=== PATIENT | female | born 1995 | race Two or more races ===

== ENCOUNTER 2025-03-05 17:25 | Inpatient (IN) | payer MEDICAID ==
[~2025-03-05] VITALS: Ht 165.1 cm; Wt 95.0 kg
--- NOTE | 2025-03-05 17:38 | ECG ---
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
--- NOTE | 2025-03-05 17:53 | ED.PDOC ---
History of Present Illness HPI Comments 29-year-old female with no significant past medical history brought in by family for evaluation of a syncopal episode about 30 minutes prior to arrival. Patient states she was in her usual state of health, had showered, then sat down on the bed, began to feel lightheaded, and asked family to bring her the blood pressure cuff to check her blood pressure. She then had a syncopal episode while seated. Unclear how long patient was unconscious, as she states no one witnessed the episode. She denies any preceding pain or shortness of breath. She denies any recent illness, vomiting or diarrhea. She states she did not eat today. She denies any bleeding or black stools, family history of VTE. Chief Complaint: Syncope Time Seen by MD: 17:29 Primary Care Provider: HEIDY Reviewed Notes: Nurses Notes Allergies: Coded Allergies: NO KNOWN ALLERGIES (Unverified , 09/30/14) Home Meds No Active Prescriptions or Reported Meds Information Source: Patient, Relative Mode of Arrival: Ambulatory Past Medical History Past Medical History (Other): One previous unprovoked syncopal episode in January of 2025 Surgical History: Denies all surgeries REHABILITATION CONSULTANT History: No Pertinent REHABILITATION CONSULTANT History Family History Family History: Reviewed,noncontributory to illness, Unknown Social History Smoker: Non-Smoker Alcohol: Denies ETOH Use Drugs: Denies Drug Use Lives In: Home All Other Systems: Reviewed and Negative (Comprehensive systems review obtained and negative except for what is stated in the HPI.) Physical Exam General Appearance: Mild Distress, Obese HEENT: Pale Conjuntivae (L), Pale Conjuntivae (R), PERRL/EOMI, Other (Pupils and face symmetric. Moist mucous membranes.) Neck: Full Range of Motion, Non-Tender, Normal Inspection, Supple Respiratory: Lungs Clear, No Accessory Muscle Use, No Respiratory Distress, Normal Breath Sounds Cardiovascular: No Edema, No JVD, Regular Rate/Rhythm Breast Exam: Deferred Gastrointestinal: Non Tender, Soft Genitalia: Deferred Pelvic: Deferred Rectal: Deferred Extremities: Normal inspection, Normal range of motion, Non-tender, No pedal edema Neurologic: Alert (Oriented x4), Normal Affect, Normal Mood, Other (Intermittently somnolent. Moves all extremities. No gross focal deficit.) Cerebellar Function: NOT DONE Reflexes: NOT DONE Skin: Dry, Pallor, Warm Lymphatic: NOT DONE Was a procedure done? Was a procedure done?: No EKG EKG #1: Comments Sinus rhythm, rate 98, normal NV and QRS intervals, QTC 476, normal axis, normal QRS, nonspecific T change. EKG #2: Comments Sinus tach, rate 114, normal NV and QRS intervals, QTC prolonged at 502, normal axis, normal QRS, nonspecific T change. Differential Dx Considerations may include: Vasovagal syncope, orthostasis, hypovolemia, anemia, arrhythmia, KS, PE, CVA, TIA, mass lesion, among others X-Ray, Labs, Meds, VS Vital Signs Date Time Temp Pulse Resp B/P (MAP) Pulse Ox O2 Delivery O2 Flow Rate FiO2 03/05/25 21:02 98.0 81 23 104/60 (75) 96 98.0 03/05/25 19:47 88 26 96 Room Air* 0 21 03/05/25 19:45 98.0 88 26 120/73 (89) 96 98.0 03/05/25 17:59 90 21 96 Room Air* 0 21 03/05/25 17:54 98.0 90 21 103/55 (71) 96 98.0 03/05/25 17:36 98 03/05/25 17:35 98.0 101 16 109/62 (78) 96 98.0 Lab Test 03/05/25 18:43 03/05/25 17:49 03/05/25 17:38 03/05/25 17:31 Range/Units Troponin I High Sensitivity < 3 L < 3 L </=34 ng/L White Blood Count 3.9 L 4.4-10.8 10^3/uL Red Blood Count 2.39 L 4.0-5.20 10^6/uL Hemoglobin 7.7 L 12.2-16.2 g/dL Hematocrit 21.4 L 36.0-46.0 % Mean Corpuscular Volume 89.4 80.0-100.0 fL Mean Corpuscular Hemoglobin 32.1 H 28.0-32.0 pg Mean Corpuscular Hemoglobin Concent 35.9 32.0-36.0 g/dL Red Cell Distribution Width 12.9 11.8-14.3 % Platelet Count 209 140-450 10^3/uL Mean Platelet Volume 7.5 6.9-10.8 fL Neutrophils (%) (Auto) 37.0-80.0 % Lymphocytes (%) (Auto) 10.0-50.0 % Monocytes (%) (Auto) 0.0-12.0 % Basophils (%) (Auto) 0.0-2.0 % Neutrophils # (Auto) 1.6-8.6 10 ^3/uL Lymphocytes # (Auto) 0.4-5.4 10 ^3/uL Monocytes # (Auto) 0-1.3 10 ^3/uL Differential Total Cells Counted 100.0 100 Neutrophils % (Manual) 38 37.0-80.0 Band Neutrophils % (Manual) 0 Lymphocytes % (Manual) 61 H 10.0-50.0 Monocytes % (Manual) 1 0-12 Eosinophils % (Manual) 0 0-7 Basophils % (Manual) 0 0.0-2.0 Metamyelocytes % (manual) 0 Myelocytes % (Manual) 0 Promyelocytes % (Manual) 0 Blast Cells % (Manual) 0 Reactive Lymphocytes 0 Platelet Estimate Adequate Prothrombin Time 10.4 9.3-11.8 sec Prothrombin Time INR 0.98 0.9-1.15 Activated Partial Thromboplast Time 23.4 L 24.5-34.5 SEC D-Dimer, Quantitative 1.08 H 0.0-0.49 mg/L FEU Sodium Level 142 136-145 mmol/L Potassium Level 3.8 3.5-5.1 mmol/L Chloride Level 109 H 98-107 mmol/L Carbon Dioxide Level 23 20-31 mmol/L Anion Gap 10 5-15 Blood Urea Nitrogen 18 9-23 mg/dL Creatinine 0.83 0.550-1.02 mg/dL Glomerular Filtration Rate Calc 98 >90 mL/min BUN/Creatinine Ratio 21.7 H 10.0-20.0 Serum Glucose 105 74-106 mg/dL Calcium Level 9.8 8.7-10.4 mg/dL Total Bilirubin 0.5 0.2-1.0 mg/dL Aspartate Amino Transferase (AST) 62 H 13-40 U/L Alanine Aminotransferase (ALT) 158 H 7-40 U/L Alkaline Phosphatase 68 46-116 U/L B-Type Natriuretic Peptide 3.04 0-100 pg/mL Total Protein 7.5 5.7-8.2 g/dL Albumin 4.5 3.2-4.8 g/dL Urine Color Colorless Yellow Urine Clarity Clear Clear Urine pH 5.5 5.0-9.0 Urine Specific [place] 1.010 1.001-1.035 Urine Protein Negative Negative Urine Ketones 1+ H Negative Urine Blood Negative Negative /uL Urine Nitrite Negative Negative Urine Bilirubin Negative Negative Urine Urobilinogen Normal Negative mg/dL Urine Leukocyte Esterase 1+ Negative /uL Urine RBC 2 0 - 4 /hpf Urine Microscopic WBC 3 0-5 /HPF Urine Squamous Epithelial Cells Few <5 /hpf Urine Bacteria Few H None Seen /hpf Urine Mucus Few None Seen Urine Glucose Normal Normal mg/dL Urine Test Negative Negative POC Glucose 93 70-106 mg/dl Current Medications Medications (Trade) Dose Ordered Sig/Samuel Route Start Time Stop Time Status Last Admin Sodium Chloride 2,000 ml @ 1,000 mls/hr Q2H ONCE IV 03/05/25 17:45 03/05/25 19:44 DC 03/05/25 17:54 Ondansetron HCl (Zofran) 4 mg Q4HP PRN IV 03/05/25 21:15 03/05/25 22:51 Ceftriaxone Sodium 50 ml @ 100 mls/hr ONCE ONCE IV 03/05/25 21:30 03/05/25 21:59 DC 03/05/25 21:49 PROCEDURE(s): CTACH - CT ANGIO CHEST CONTRAST REASON: syncope hi dimer ORDER NUMBER(s): [id number], ACCESSION NUMBER(s): [id number] Procedure: CT CT ANGIO CHEST CONTRAST Reason for study/Clinical History: syncope hi dimer Comparison Study: None Exam Date: 03/05/2025 09:55 PM Radiation Dose Information: CT Dose: CTDI volume is 26.18 mGy. Dose-length product is 936.47 mGy*cm Contrast: Type of contrast: Omni 350 Contrast inject: 100 mL Contrast wasted:0 TECHNIQUE: After the uneventful administration of intravenous contrast intravenously, CT imaging was performed through the chest. Coronal and sagittal reformations were performed by the technologist. FINDINGS: Lower Neck: Visualized portions of the thyroid gland are unremarkable. Aorta and Vasculature: Normal caliber of thoracic aorta. Several filling defects in the 3rd and 4th order branches of the right lower lobe pulmonary artery. Series 2 images 87- 93 Lymph Nodes: No enlarged intrathoracic lymph nodes. Mediastinum: Heart size is normal. There is no pericardial effusion. The esophagus is unremarkable. Lungs: No focal consolidation, pleural effusion or significant pneumothorax. No suspicious pulmonary nodule or mass. Musculoskeletal: No acute osseous abnormality. Upper abdomen: Limited portions of the upper abdomen are unremarkable. IMPRESSION: 1. Positive pulmonary emboli in the 3rd and 4th order branches of the right lower lobe pulmonary artery. (Series 2 images 87- 93) 2. CRITICAL FINDINGS 3. Critical Result: POSITIVE PULMONARY EMBOLI 3RD AND 4TH ORDER BRANCHES RIGHT LOWER LOBE PULMONARY ARTERY. 4. Findings discussed with Dr Khanna , at 03/05/2025 10:41 PM, and acknowledged receipt and understanding of the findings. 5. .. All CT scans at this medical facility are performed using dose modulation techniques as appropriate to a performed exam including the following: Automated exposure control was utilized; adjustment of the MA and/or KV according to patient size; and use of iterative reconstruction technique. X-Ray, Labs, Meds, VS Comment 29-year-old female with no significant past medical history presenting after a syncopal episode Vitals remarkable for initial heart rate of 101 Exam remarkable for pallor, somnolence Rhythm strip independently interpreted by me: Sinus rhythm, rate 98, no ectopy. CT angio chest IMPRESSION: 1. Positive pulmonary emboli in the 3rd and 4th order branches of the right lower lobe pulmonary artery. (Series 2 images 87- 93) CBC remarkable for WBC 3.9, hemoglobin 7.7, hematocrit 21.4, CMP unremarkable, BNP and troponin negative, D-dimer 1.01, coag panel PTT 23.4, UA and urine test pending Patient treated with the following in the ED: 2 L 0.9 normal saline IV bolus On re-evaluation, patient is more alert and no longer tachycardic. Other vitals were stable Patient states she has not had her menstrual period for several months, and reports no bleeding or dark stools. Syncope is possibly due to anemia. Plan is to admit the patient for heme/onc evaluation and hemoglobin trend. Patient was admitted prior to CT angio chest results. When I was notified of results, I started the patient on the heparin protocol. Patient at the same time developed chest pain, so morphine was administered which relieved the chest pain. EKG repeated after onset of chest pain showed a sinus tach, rate 114. Time of 1ST Reevaluation: 18:46 Reevaluation 1ST: Improved Patient Education/Counseling: Diagnosis, Treatment, Need For Follow Up Family Education/Counseling: Diagnosis, Treatment, Need For Follow Up Departure 1 Departure Time of Disposition: 20:00 Impression: Primary Impression: Syncope Qualified Codes: R55 - Syncope and collapse Additional Impressions: Symptomatic anemia Leukopenia Qualified Codes: D72.819 - Decreased white blood cell count, unspecified Coagulopathy Pulmonary emboli Qualified Codes: I26.99 - Other pulmonary embolism without acute cor pulmonale Disposition: ADMITTED INPATIENT Admit to: [facility] Condition: Guarded e-Prescriptions No Active Prescriptions or Reported Meds Critical Care Note Critical Care Time?: Yes (45 min-critical care time only) Critical care comment: Critical care time including multiple bedside re-evaluations, review of lab and imaging studies, and discussion of the case with the admitting provider. Patient is high risk for hemodynamic and/or neurologic decompensation. Stability Stability form required: No Heart Score Heart Score: Heart Score Response (Comments) Value History N/A 0 EKG N/A 0 Age N/A 0 Risk Factors N/A 0 Troponin N/A 0 Total 0 MAXIMO HAN MD March 05, 2025 17:53
[2025-03-05] MEDS: SODIUM CHLORIDE 0.9% 2,000 ML IV ONE (17:54)
[2025-03-05 17:59] VITALS: PULSE 90; RESP 21; O2SAT 96
[2025-03-05 18:18] LABS: Alanine Aminotransferase 158 U/L (7-40); Albumin 4.5 g/dL (3.2-4.8); Alkaline Phosphatase 68 U/L (46-116); Anion Gap 10 (5-15); Aspartate Aminotransferase 62 U/L (13-40); BUN/Creatinine Ratio 21.7 (10.0-20.0); Bilirubin, Total 0.5 mg/dL (0.2-1.0); Blood Urea Nitrogen 18 mg/dL (9-23); Calcium 9.8 mg/dL (8.7-10.4); Carbon Dioxide 23 mmol/L (20-31); Chloride 109 mmol/L (98-107); Glucose 105 mg/dL (74-106); INR 0.98 (0.9-1.15); Partial Thromboplastin Time 23.4 SEC (24.5-34.5); Potassium 3.8 mmol/L (3.5-5.1); Prothrombin Time 10.4 sec (9.3-11.8); Sodium 142 mmol/L (136-145); Total Protein 7.5 g/dL (5.7-8.2)
[2025-03-05 18:26] LABS: Hematocrit 21.4 % (36.0-46.0); Hemoglobin 7.7 g/dL (12.2-16.2); Mean Corpuscular Volume 89.4 fL (80.0-100.0); White Blood Cell 3.9 10^3/uL (4.4-10.8)
[2025-03-05 18:28] LABS: Mean Corpuscular Hemoglobin 32.1 pg (28.0-32.0); Mean Corpuscular Hgb Conc. 35.9 g/dL (32.0-36.0); Platelet Count (auto) 209 10^3/uL (140-450); Red Blood Cells 2.39 10^6/uL (4.0-5.20); Red Cell Distribution Width 12.9 % (11.8-14.3)
[2025-03-05 18:29] LABS: Band Neutrophils % (manual) 0; Basophils % (manual) 0 (0.0-2.0); Blast Cells 0; Eosinophils % (manual) 0 (0-7); Metamyelocytes % 0; Myelocytes % 0; Promyelocytes % 0; Reactive Lymphocytes 0
[2025-03-05 18:50] LABS: Lymphocytes % (manual) 61 (10.0-50.0); Monocytes % (manual) 1 (0-12); Platelet Estimate Adequate
[2025-03-05 19:47] VITALS: PULSE 88; RESP 26; O2SAT 96
[2025-03-05 20:55] LABS: Urine Bacteria FEW /hpf (None Seen); Urine Blood Negative /uL (Negative); Urine Clarity Clear (Clear); Urine Color Colorless (Yellow); Urine Mucus FEW (None Seen); Urine Protein, UAD Negative (Negative); Urine Squamous Epithelial Cell FEW /hpf (<5); Urine Urobilinogen Normal (Negative); Urine WBC 3 /HPF (0-5); Urine pH 5.5 (5.0-9.0)
[2025-03-05] MEDS ORDERED: ACETAMINOPHEN 325 MG TAB PO PRN (21:15)
[2025-03-05] MEDS ORDERED: DOCUSATE SOD 100 MG CAP PO PRN (21:15)
[2025-03-05] MEDS ORDERED: HYDROcodone-ACET 5/325MG TAB PO PRN (21:15)
[2025-03-05] MEDS: IOHEXOL 350 MG/ML 100ML IJ ONE (21:23)
--- NOTE | 2025-03-05 21:42 | DVHHP2 ---
History of Present Illness Reason for Visit: Syncope and collapse History of Present Illness The patient is a 29-year-old female with past medical history of syncope who presented to [facility] ED for evaluation of syncopal episode. Patient reports she feeling lightheaded after shower, then sat down on the bed trying to check her blood pressure when she had a syncopal episode. Unclear how long patient was unconscious, as she states no one witnessed the episode. Patient was seen and evaluated in the ED, laboratory data shows WBC 3.9, hemoglobin 7.7, hematocrit 21.4, platelets 209, sodium 142, potassium 3.8, BUN 18, creatinine 0.83, glucose 105, AST 62, ALT 158, BNP 3.04, D-dimer 1.08, troponin < 3, urinalysis positive for urinary tract infection, blood pressure 104/60, heart rate 82, temperature 98.0 F, O2 saturation 96% on room air. CT Angiography revealing positive pulmonary emboli in the 3rd and 4th order branches of the right lower lobe pulmonary artery. Patient was started on IV antibiotic regimen Rocephin, heparin drip, please see medication orders section in the computer. On my assessment, patient denies chest pain, no headache, no dizziness, no blurry vision, no shortness of breath, no nausea, no vomiting, no fever, no chills. Patient was admitted for further evaluation and medical management. Past Medical History Syncope Past Surgical History Denies all surgeries Family History Reviewed, noncontributory to the management of this case. Past Social History The patient lives at home, denies smoking, alcohol or illicit drugs abuse. Review of Systems Constitutional: No: Fever, Chills, Sweats, Weakness, Malaise, Other Eyes: No: Pain, Vision change, Conjunctivae inflammation, Eyelid inflammation, Other, Redness ENT: No: Ear pain, Ear discharge, Nose pain, Nose discharge, Nose congestion, Mouth pain, Mouth swelling, Throat pain, Throat swelling, Other Respiratory: No: Cough, Dry, Shortness of breath, SOB with excertion, Wheezing, Hemoptysis, Pleuritic Pain, Sputum, Wheezing, Other Cardiovascular: Other (Syncope); No: Chest Pain, Palpitations, Orthopnea, Paroxysmal Noc. Dyspnea, Edema, Lt Headedness Gastrointestinal: No: Nausea, Vomiting, Abdominal Pain, Diarrhea, Constipation, Melena, Hematochezia, Other Genitourinary: No Dysuria, No Frequency, No Incontinence, No Hematuria, No Retention, No Other Musculoskeletal: No: other, neck pain, shoulder pain, arm pain, back pain, hand pain, leg pain, foot pain Skin: No: Rash, Lesions, Jaundice, Bruising, Other Neurological: No: Weakness, Numbness, Incoordination, Change in speech, Confusion, Seizures, Other Allergies: Coded Allergies: NO KNOWN ALLERGIES (Unverified , 09/30/14) Medications Current Medications Medications Dose Ordered Sig/Samuel Route Start Time Stop Time Status Last Admin Dose Admin Acetaminophen/ Hydrocodone Bitart 1 tab Q4HP PRN PO 03/05/25 21:15 Ondansetron HCl 4 mg Q4HP PRN IV 03/05/25 21:15 Docusate Sodium 100 mg BIDPRN PRN PO 03/05/25 21:15 Acetaminophen 650 mg Q6HP PRN PO 03/05/25 21:15 Ceftriaxone Sodium 50 ml @ 100 mls/hr DAILY@2100 IV 03/06/25 21:00 Exam Vital Signs Vital Signs Date Time Temp Pulse Resp B/P (MAP) Pulse Ox O2 Delivery O2 Flow Rate FiO2 03/05/25 21:02 98.0 81 23 104/60 (75) 96 98.0 03/05/25 19:47 Room Air* 0 21 General Appearance: Alert, Oriented X3, Cooperative, No acute distress HEENT: Atraumatic, PERRLA, EOMI, Mucous membr. moist/pink Respiratory: Clear to auscultation, Normal air movement Cardiovascular: Regular rate, Normal S1, Normal S2, No murmurs Abdominal: Normal bowel sounds, Soft, No tenderness, No hepatospenomegaly, No masses Extremities: No clubbing, No cyanosis, No edema, Normal pulses, No tenderness/swelling Skin: No rashes, No breakdown, No significant lesion Neuro: Normal gait, Normal speech, Strength at 5/5 X4 ext, Normal tone, Sensation intact, Cranial nerves 3-12 NL, Reflexes 2+ Psych/Mental Status: Mental status NL, Mood NL Labs/Xrays Labs Test 03/05/25 18:43 03/05/25 17:49 03/05/25 17:38 03/05/25 17:31 Range/Units Troponin I High Sensitivity < 3 L </=34 ng/L White Blood Count 3.9 L 4.4-10.8 10^3/uL Red Blood Count 2.39 L 4.0-5.20 10^6/uL Hemoglobin 7.7 L 12.2-16.2 g/dL Hematocrit 21.4 L 36.0-46.0 % Mean Corpuscular Volume 89.4 80.0-100.0 fL Mean Corpuscular Hemoglobin 32.1 H 28.0-32.0 pg Mean Corpuscular Hemoglobin Concent 35.9 32.0-36.0 g/dL Red Cell Distribution Width 12.9 11.8-14.3 % Platelet Count 209 140-450 10^3/uL Mean Platelet Volume 7.5 6.9-10.8 fL Neutrophils (%) (Auto) 37.0-80.0 % Lymphocytes (%) (Auto) 10.0-50.0 % Monocytes (%) (Auto) 0.0-12.0 % Basophils (%) (Auto) 0.0-2.0 % Neutrophils # (Auto) 1.6-8.6 10 ^3/uL Lymphocytes # (Auto) 0.4-5.4 10 ^3/uL Monocytes # (Auto) 0-1.3 10 ^3/uL Differential Total Cells Counted 100.0 100 Neutrophils % (Manual) 38 37.0-80.0 Band Neutrophils % (Manual) 0 Lymphocytes % (Manual) 61 H 10.0-50.0 Monocytes % (Manual) 1 0-12 Eosinophils % (Manual) 0 0-7 Basophils % (Manual) 0 0.0-2.0 Metamyelocytes % (manual) 0 Myelocytes % (Manual) 0 Promyelocytes % (Manual) 0 Blast Cells % (Manual) 0 Reactive Lymphocytes 0 Platelet Estimate Adequate Prothrombin Time 10.4 9.3-11.8 sec Prothrombin Time INR 0.98 0.9-1.15 Activated Partial Thromboplast Time 23.4 L 24.5-34.5 SEC D-Dimer, Quantitative 1.08 H 0.0-0.49 mg/L FEU Sodium Level 142 136-145 mmol/L Potassium Level 3.8 3.5-5.1 mmol/L Chloride Level 109 H 98-107 mmol/L Carbon Dioxide Level 23 20-31 mmol/L Anion Gap 10 5-15 Blood Urea Nitrogen 18 9-23 mg/dL Creatinine 0.83 0.550-1.02 mg/dL Glomerular Filtration Rate Calc 98 >90 mL/min BUN/Creatinine Ratio 21.7 H 10.0-20.0 Serum Glucose 105 74-106 mg/dL Calcium Level 9.8 8.7-10.4 mg/dL Total Bilirubin 0.5 0.2-1.0 mg/dL Aspartate Amino Transferase (AST) 62 H 13-40 U/L Alanine Aminotransferase (ALT) 158 H 7-40 U/L Alkaline Phosphatase 68 46-116 U/L B-Type Natriuretic Peptide 3.04 0-100 pg/mL Total Protein 7.5 5.7-8.2 g/dL Albumin 4.5 3.2-4.8 g/dL Urine Color Colorless Yellow Urine Clarity Clear Clear Urine pH 5.5 5.0-9.0 Urine Specific [place] 1.010 1.001-1.035 Urine Protein Negative Negative Urine Ketones 1+ H Negative Urine Blood Negative Negative /uL Urine Nitrite Negative Negative Urine Bilirubin Negative Negative Urine Urobilinogen Normal Negative mg/dL Urine Leukocyte Esterase 1+ Negative /uL Urine RBC 2 0 - 4 /hpf Urine Microscopic WBC 3 0-5 /HPF Urine Squamous Epithelial Cells Few <5 /hpf Urine Bacteria Few H None Seen /hpf Urine Mucus Few None Seen Urine Glucose Normal Normal mg/dL Urine Test Negative Negative POC Glucose 93 70-106 mg/dl PATIENT: LATASHA WARNERIAACCT: [id number] UNIT: [id number] : 1995 LOC: OVERFLOW ROOM / BED: [address] [place] [address] AGE / SEX: 29 / F ADM STATUS: ADM IN SERVICE 48 ORDERING PHYSICIAN: MAXIMO HAN MD PROCEDURE(s): CTACH - CT ANGIO CHEST CONTRAST REASON: syncope hi dimer ORDER NUMBER(s): [id number], ACCESSION NUMBER(s): [id number] Procedure: CT CT ANGIO CHEST CONTRAST Reason for study/Clinical History: syncope hi dimer Comparison Study: None Exam Date: 03/05/2025 09:55 PM Radiation Dose Information: CT Dose: CTDI volume is 26.18 mGy. Dose-length product is 936.47 mGy*cm Contrast: Type of contrast: Omni 350 Contrast inject: 100 mL Contrast wasted:0 TECHNIQUE: After the uneventful administration of intravenous contrast intravenously, CT imaging was performed through the chest. Coronal and sagittal reformations were performed by the technologist. FINDINGS: Lower Neck: Visualized portions of the thyroid gland are unremarkable. Aorta and Vasculature: Normal caliber of thoracic aorta. Several filling defects in the 3rd and 4th order branches of the right lower lobe pulmonary artery. Series 2 images 87- 93 Lymph Nodes: No enlarged intrathoracic lymph nodes. Mediastinum: Heart size is normal. There is no pericardial effusion. The esophagus is unremarkable. Lungs: No focal consolidation, pleural effusion or significant pneumothorax. No suspicious pulmonary nodule or mass. Musculoskeletal: No acute osseous abnormality. Upper abdomen: Limited portions of the upper abdomen are unremarkable. IMPRESSION: Positive pulmonary emboli in the 3rd and 4th order branches of the right lower lobe pulmonary artery. (Series 2 images 87- 93) CRITICAL FINDINGS Critical Result: POSITIVE PULMONARY EMBOLI 3RD AND 4TH ORDER BRANCHES RIGHT LOWER LOBE PULMONARY ARTERY. Assessment/Plan Assessment/Plan Syncope and collapse Symptomatic anemia Leukopenia Urinary tract infection Elevated D-dimer Pulmonary emboli Other pulmonary embolism without acute cor pulmonale Elevated liver enzymes Decreased white blood cell count, unspecified Plan 1. Admit to telemetry unit 2. Breathing treatment 3. Pain control management 4. IV antibiotic management 5. Management of fluids and electrolytes 6. Consultation for hospitalist 7. Diagnostic test CT angiography 8. DVT prophylaxis on SCDs 9. Repeat labs CBC, CMP in a.m. 10. Home medication reviewed and reconciled 11. Continue with current medical management 12. Treatment plan discussed with patient and RN. Patient verbalized understanding. Plan discussed with: Patient, Other (RN) My Orders Orders - DELFINA FIELDS DNP Procedure Category Date Status Time * Gi Dvh Sheet Cutting Operator CONS 03/05/25 Transmitted 21:12 Allergies ROMAINE 03/05/25 In Process 21:12 Code Status CODE 03/05/25 Transmitted 21:12 Oxygen Per Hour RT 03/05/25 Transmitted 21:12 Hydrocodone-Acet PHA 03/05/25 In Process 5/325mg Tab ([place] 21:15 Ondansetron Hcl PHA 03/05/25 In Process (Zofran) 21:15 Docusate Sodium PHA 03/05/25 In Process Capsule (Colace 21:15 Fall Risk Precautions ROMAINE 03/05/[address] 21:12 Complete Blood Count LAB 03/06/25 Verified 04:00 Comprehensive LAB 03/06/25 Verified Metabolic Panel 04:00 Cardiac DIET 03/06/25 Transmitted Diet-2gna,Lofat,Lochol Breakfast Condition: Serious ROMAINE 03/05/25 In Process 21:12 Acetaminophen Tablet PHA 03/05/25 In Process (Tylenol Tablet) 21:15 Maintain Bed Rest ROMAINE 03/05/25 In Process 21:12 Sequential ROMAINE 03/05/25 In Process Compression Device Urine Bacterial ROMERO 03/05/25 In Process Culture 21:23 Ceftriaxone 1gm/50ml PHA 03/06/25 In Process D5w (Rocephin) 21:00 Ceftriaxone 1gm/50ml PHA 03/05/25 In Process D5w (Rocephin) 21:30 Admit ADMIT 03/05/25 Verified 21:41 Nitroglycerin [facility] 03/05/25 Verified Sublingual (Ntrostat 21:45 Morphine Sulfate PHA 03/05/25 Verified Injection 21:45 Notify Md Of Changes [facility] 03/05/25 Verified From Base 21:41 Manager Transportation Planning For [facility] 03/05/25 Verified 24 Hours 21:41 Emergency Dysrhythmia [facility] 03/05/25 Verified Protocol 21:41 Rhythm Strips Once [facility] 03/05/25 Verified Every Shift 21:41 Oxygen By Nasal RT 03/05/25 Verified Cannula 21:41 Problem List: (1) Syncope and collapse (2) Elevated d-dimer (3) Symptomatic anemia (4) Leukopenia (5) Pulmonary emboli (6) Elevated liver enzymes (7) UTI (urinary tract infection) (8) Decreased white blood cell count, unspecified (9) Other pulmonary embolism without acute cor pulmonale Date of Service: March 05, 2025 Billing Provider: DELFINA FIELDS DNP Common Visit Codes: [id number] INP/OBS CARE (HIGH) DELFINA FIELDS DNP March 05, 2025 21:42
[2025-03-05] MEDS ORDERED: NITROGLYCERIN 0.4 MG SL TAB SL PRN (21:45)
[2025-03-05] MEDS: cefTRIAXone 1GM/50ML D5W 50 ML IV ONE (21:49)
[2025-03-05 22:17] VITALS: BP 113/56; PULSE 96; RESP 20; TEMP 98.2; O2SAT 95
--- NOTE | 2025-03-05 22:49 | DVH ---
Procedure: CT CT ANGIO CHEST CONTRAST Reason for study/Clinical History: syncope hi dimer Comparison Study: None Exam Date: 03/05/2025 09:55 PM Radiation Dose Information: CT Dose: CTDI volume is 26.18 mGy. Dose-length product is 936.47 mGy*cm Contrast: Type of contrast: Omni 350 Contrast inject: 100 mL Contrast wasted:0 TECHNIQUE: After the uneventful administration of intravenous contrast intravenously, CT imaging was performed through the chest. Coronal and sagittal reformations were performed by the technologist. FINDINGS: Lower Neck: Visualized portions of the thyroid gland are unremarkable. Aorta and Vasculature: Normal caliber of thoracic aorta. Several filling defects in the 3rd and 4th o rder branches of the right lower lobe pulmonary artery. Series 2 images 87- 93 Lymph Nodes: No enlarged intrathoracic lymph nodes. Mediastinum: Heart size is normal. There is no pericardial effusion. The esophagus is unremarkable. Lungs: No focal consolidation, pleural effusion or significant pneumothorax. No suspicious pulmonary nodule or mass. Musculoskeletal: No acute osseous abnormality. Upper abdomen: Limited portions of the upper abdomen are unremarkable. IMPRESSION: 1. Positive pulmonary emboli in the 3rd and 4th order branches of the right lower lobe pulmonary adilson ry. (Series 2 images 87- 93) 2. CRITICAL FINDINGS 3. Critical Result: POSITIVE PULMONARY EMBOLI 3RD AND 4TH ORDER BRANCHES RIGHT LOWER LOBE PULMONARY ART WARD. 4. Findings discussed with Dr Khanna , at 03/05/2025 10:41 PM, and acknowledged receipt and understanding o f the findings. 5. .. All CT scans at this medical facility are performed using dose modulation techniques as appropriate to a performed exam including the following: Automated exposure control was utilized; adjustment of t he MA and/or KV according to patient size; and use of iterative reconstruction technique.
[2025-03-05] MEDS: MORPHINE SULFATE INJ 2 MG/ml SYRG IV PRN (22:50)
[2025-03-05] MEDS: ONDANSETRON HCL 4 MG/2 ML VIAL IV PRN (22:51)
[2025-03-05] MEDS ORDERED: HEPARIN DRIP/D5W 100UNITS/ML 250 ML IV SCH (23:00)
[2025-03-05] MEDS: HEPARIN SODIUM (PORCINE) 5000 UNITS/ML 1ML VIAL IV ONE ×2 (23:25→23:43)
[2025-03-05] MEDS: HEPARIN DRIP/D5W 100UNITS/ML 250 ML IV SCH (23:40)
[2025-03-06] VITALS (14 sets, daily range): BP systolic 98–119; BP diastolic 53–67; PULSE 74–95; RESP 16–18; TEMP 97.5–98.5; O2SAT 94–96
[2025-03-06 06:29] LABS: Hematocrit 17.4 % (36.0-46.0); Mean Corpuscular Hemoglobin 32.7 pg (28.0-32.0); Mean Corpuscular Volume 89.3 fL (80.0-100.0); Platelet Count (auto) 185 10^3/uL (140-450); Red Blood Cells 1.95 10^6/uL (4.0-5.20); Red Cell Distribution Width 13.1 % (11.8-14.3); White Blood Cell 4.2 10^3/uL (4.4-10.8)
[2025-03-06 06:34] LABS: Mean Corpuscular Hgb Conc. 36.6 g/dL (32.0-36.0)
[2025-03-06 06:41] LABS: Hemoglobin 6.4 g/dL (12.2-16.2)
[2025-03-06 06:42] LABS: Band Neutrophils % (manual) 0; Basophils % (manual) 0 (0.0-2.0); Blast Cells 0; Eosinophils % (manual) 0 (0-7); Metamyelocytes % 0; Myelocytes % 0; Promyelocytes % 0; Reactive Lymphocytes 0
[2025-03-06 06:48] LABS: Albumin 3.9 g/dL (3.2-4.8); Alkaline Phosphatase 55 U/L (46-116); Anion Gap 9 (5-15); BUN/Creatinine Ratio 16.7 (10.0-20.0); Blood Urea Nitrogen 13 mg/dL (9-23); Calcium 9.2 mg/dL (8.7-10.4); Carbon Dioxide 23 mmol/L (20-31); Glucose 103 mg/dL (74-106); Potassium 3.7 mmol/L (3.5-5.1); Sodium 141 mmol/L (136-145); Total Protein 6.6 g/dL (5.7-8.2)
[2025-03-06 06:49] LABS: Bilirubin, Total 0.5 mg/dL (0.2-1.0)
[2025-03-06 06:51] LABS: Alanine Aminotransferase 128 U/L (7-40); Aspartate Aminotransferase 49 U/L (13-40); Chloride 109 mmol/L (98-107)
[2025-03-06 06:54] LABS: INR 1.08 (0.9-1.15); Prothrombin Time 11.4 sec (9.3-11.8)
[2025-03-06 07:03] LABS: Partial Thromboplastin Time > 139.0 SEC (24.5-34.5)
[2025-03-06 08:07] LABS: Lymphocytes % (manual) 67 (10.0-50.0); Monocytes % (manual) 2 (0-12); Platelet Estimate Adequate; RBC Morphology Normal
[2025-03-06 08:42] LABS: % Iron Saturation 98.4 % (15-50)
[2025-03-06] MEDS: PANTOPRAZOLE 40 MG/10 ML VIAL INJ IV SCH (08:51)
--- NOTE | 2025-03-06 09:01 | DVH ---
Technique: Real-time ultrasound imaging, with color Doppler and compression of the common femoral v ein, femoral vein, greater saphenous vein, and popliteal vein. Indication: positive PE Comparison: None Findings: There is normal compressibility and flow augmentation in all of the imaged deep veins. There are no f illing defects. Impression: 1. No evidence of DVT in the bilateral lower extremities
--- NOTE | 2025-03-06 09:04 | DVH ---
Technique: Real-time ultrasound imaging of the abdomen was performed with grayscale and color Doppler . Indication: elevated LFTs Comparison: None Findings: Liver measures 14.2 cm. It is increased in echogenicity and echotexture without focal mass. Portal v ein is normal in caliber and demonstrates normal hepatopetal flow. Gallbladder demonstrates cholelithiasis with sludge. There is no pericholecystic fluid. The wall thic kness is normal. The common bile duct measures 5 mm. No intrahepatic biliary ductal dilatation. The right kidney measures 10.8 cm. There is no hydronephrosis or sonographic evidence of nephrolithia sis. The visualized portion of the pancreas is unremarkable The visualized portion of the IVC is unremarkable. Impression: 1. Cholelithiasis with sludge 2. Echogenic liver which can be seen with hepatic steatosis, cirrhosis.
[2025-03-06 09:29] LABS: Wright Stain Ready for Review
--- NOTE | 2025-03-06 09:56 | CONS ---
Pharmacy Clinical Information: PER RN SHAWN, HEPARIN DRIP CURRENTLY ON HOLD PENDING CLARIFICATION FROM PROVIDER DUE TO PATIENT'S LOW HGB IF DRIP IS TO BE RE-STARTED, RATE WILL BE 1300 UNITS/HR = 13 ML/HR. ROSA SHEN PHARMACIST March 06, 2025 09:56
[2025-03-06] MEDS ORDERED: HEPARIN DRIP/D5W 100UNITS/ML 250 ML IV SCH (10:00)
[2025-03-06 14:46] LABS: Hemoglobin 8.2 g/dL (12.2-16.2)
--- NOTE | 2025-03-06 14:49 | DVHPN2 ---
Subjective 29-year-old female with a past medical history of syncope in the past also came with a new syncopal episode, she apparently felt lightheaded a week ago similar to this time but this time was more pronounced, apparently her sister heard the noise when she fell after she got out of the shower The patient herself does not remember what happened Hemoglobin on admission was 7.7 White count 3.9 Platelets [address] angiography showed positive pulmonary emboli in the 3rd and 4th order branches of the right lung No DVT She has cholelithiasis with sludge and hepatic steatosis Liver enzymes are slightly elevated She denies alcohol drinking, denies smoking or any other drugs She completely denies any GI bleed, she says she has no black stools She also completely denied any vaginal bleeding, she says she does not get any periods, last period was a year ago Changes from previous H/P or p: Changes Eyes: No Pain, No Vision change, No Conjunctivae inflammation, No Eyelid inflammation, No Other, No Redness ENT: No Ear pain, No Ear discharge, No Nose pain, No Nose discharge, No Nose congestion, No Mouth pain, No Mouth swelling, No Throat pain, No Throat swelling, No Other Cardiovascular: No Chest Pain, No Palpitations, No Orthopnea, No Paroxysmal Noc. Dyspnea, No Edema, No Lt Headedness; Other (Syncope) Respiratory: No Cough, No Dry, No Shortness of breath, No SOB with excertion, No Wheezing, No Hemoptysis, No Pleuritic Pain, No Sputum, No Other Gastrointestinal: No Nausea, No Vomiting, No Abdominal Pain, No Diarrhea, No Constipation, No Melena, No Hematochezia, No Other Genitourinary: No Dysuria, No Frequency, No Incontinence, No Hematuria, No Retention, No Other Musculoskeletal: No other, No neck pain, No shoulder pain, No arm pain, No back pain, No hand pain, No leg pain, No foot pain Skin: No Rash, No Lesions, No Jaundice, No Bruising, No Other Objective Vitals Vital Signs Date Time Temp Pulse Resp B/P (MAP) Pulse Ox O2 Delivery O2 Flow Rate FiO2 03/06/25 13:58 97.8 85 18 119/59 97.8 03/06/25 13:00 94 03/06/25 08:19 Room Air* 0 21 Intake/Output Intake and Output 03/06/25 07:00 Intake Total 2405.5 ml Output Total 200 ml Balance 2205.5 ml Intake Oral 240 ml IV Total 2165.5 ml Output Urine Total 200 ml General Appearance: Alert, Oriented X3, Cooperative, No acute distress Lungs: Clear to auscultation, Normal air movement Cardiovascular: Regular rate, Normal S1, Normal S2 Abdomen: Normal bowel sounds, Soft, No tenderness Extremities: No edema Medications Current Medications Medications Dose Ordered Sig/Samuel Route Start Time Stop Time Status Last Admin Dose Admin Acetaminophen/ Hydrocodone Bitart 1 tab Q4HP PRN PO 03/05/25 21:15 Ondansetron HCl 4 mg Q4HP PRN IV 03/05/25 21:15 03/05/25 22:51 4 MG Docusate Sodium 100 mg BIDPRN PRN PO 03/05/25 21:15 Acetaminophen 650 mg Q6HP PRN PO 03/05/25 21:15 Ceftriaxone Sodium 50 ml @ 100 mls/hr DAILY@2100 IV 03/06/25 21:00 Nitroglycerin 0.4 mg Q5MINP PRN SL 03/05/25 21:45 Morphine Sulfate 2 mg Q30M PRN IV 03/05/25 21:45 03/05/25 22:50 2 MG Heparin Sodium/ Dextrose 250 ml @ 16.56 mls/ hr Q15H6M IV 03/05/25 23:00 UNV Pantoprazole Sodium 40 mg DAILY IV 03/06/25 10:00 03/06/25 08:51 40 MG Laboratory Results Laboratory Tests 03/06/25 05:35 Chemistry Test 03/05/25 17:49 03/06/25 05:35 Albumin 4.5 g/dL (3.2-4.8) 3.9 g/dL (3.2-4.8) Calcium Level 9.8 mg/dL (8.7-10.4) 9.2 mg/dL (8.7-10.4) Total Protein 7.5 g/dL (5.7-8.2) 6.6 g/dL (5.7-8.2) Coagulation Test 03/05/25 17:49 03/06/25 05:35 Prothrombin Time 10.4 sec (9.3-11.8) 11.4 sec (9.3-11.8) Prothrombin Time INR 0.98 (0.9-1.15) 1.08 (0.9-1.15) Activated Partial Thromboplast Time 23.4 SEC (24.5-34.5) L > 139.0 SEC (24.5-34.5) *H D-Dimer, Quantitative 1.08 mg/L FEU (0.0-0.49) H Cardiac Markers Test 03/05/25 17:49 B-Type Natriuretic Peptide 3.04 pg/mL (0-100) LFT Test 03/05/25 17:49 03/06/25 05:35 Alanine Aminotransferase (ALT) 158 U/L (7-40) H 128 U/L (7-40) H Alkaline Phosphatase 68 U/L (46-116) 55 U/L (46-116) Aspartate Amino Transferase (AST) 62 U/L (13-40) H 49 U/L (13-40) H Total Bilirubin 0.5 mg/dL (0.2-1.0) 0.5 mg/dL (0.2-1.0) Urinalysis Test 03/05/25 17:38 Urine Color Colorless (Yellow) Urine Clarity Clear (Clear) Urine pH 5.5 (5.0-9.0) Urine Specific [place] 1.010 (1.001-1.035) Urine Protein Negative (Negative) Urine Ketones 1+ (Negative) H Urine Blood Negative /uL (Negative) Urine Nitrite Negative (Negative) Urine Bilirubin Negative (Negative) Urine Urobilinogen Normal mg/dL (Negative) Urine Leukocyte Esterase 1+ /uL (Negative) Urine RBC 2 /hpf (0 - 4) Urine Microscopic WBC 3 /HPF (0-5) Urine Squamous Epithelial Cells Few /hpf (<5) Urine Bacteria Few /hpf (None Seen) H Urine Mucus Few (None Seen) Urine Glucose Normal mg/dL (Normal) Urine Test Negative (Negative) Microbiology Microbiology Date/Time Source Procedure Growth Status 03/05/25 17:38 Voided Urine Urine Culture - Preliminary Resulted Assessment/Plan Assessment/Plan Unexplained anemia Neutropenia with lymphocytosis Pulmonary embolism Obesity Amenorrhea UTI Plan She received 1 unit of packed RBCs this morning She was receiving IV heparin Switch to Lovenox Peripheral smear was done, pending The fact that she has neutropenia and lymphocytosis and anemia with low reticulocyte count raises the suspicion of low production such as leukemia or bone marrow failure The patient completely denies taking any rwxb-lhm-dmtmzik medication such as NSAIDs or any supplements or stimulants Check the folic acid and vitamin B12 Check the TSH Do a pelvic ultrasound Monitor closely Full code Discussed with the family at the bedside Advance directives discussed for 22 minutes Plan discussed with: Patient My Orders Orders - SPENCER QUIROZ MD Procedure Category Date Status Time Hemoglobin & LAB 03/06/25 Logged Hematocrit 14:20 Date of Service: March 06, 2025 Billing Provider: SPENCER QUIROZ MD Common Visit Codes: [id number] INP/OBS CARE(HIGH) Secondary Visit Codes: [id number] CARE PLAN 30 MINUTES SPENCER QUIROZ MD March 06, 2025 14:48
[2025-03-06 14:53] LABS: Hematocrit 22.8 % (36.0-46.0)
[2025-03-06] MEDS: ENOXAPARIN SOD 100 MG/1 ML SYRINGE SC ONE (16:05)
--- NOTE | 2025-03-06 16:12 | DVH ---
Technique: Real-time ultrasound images through the pelvis using a transabdominal transducer. Indication: Amenorrhea Comparison: None Findings: The uterus is normal in size, measuring 8.3 cm. The endometrial stripe measures 12 mm. There are no focal masses. There is no abnormal flow in the endometrium. Right ovary measures 5 x 2.5 x 2.7 cm. Normal flow on color doppler images. No focal masses are ident ified. Left ovary measures 5.4 x 2.2 x 2.2 cm. Normal flow on color doppler images. No focal masses are nisreen ntified. There is no significant free fluid in the pelvis. Impression: 1. Endometrial thickness of 12 mm, within normal limits for a patient with active menstrual cycle. 2. Prominent ovarian size. Correlate for entities such as polycystic ovarian disease.
[2025-03-06] MEDS: cefTRIAXone 1GM/50ML D5W 50 ML IV SCH (20:36)
[2025-03-06] MEDS: ENOXAPARIN SOD 100 MG/1 ML SYRINGE SC SCH (21:59)
[2025-03-07] VITALS (9 sets, daily range): BP systolic 98–114; BP diastolic 51–73; PULSE 72–84; RESP 16–18; TEMP 97.7–98.3; O2SAT 96–98
[2025-03-07 07:57] LABS: Hematocrit 23.5 % (36.0-46.0); Platelet Count (auto) 164 10^3/uL (140-450); Red Blood Cells 2.68 10^6/uL (4.0-5.20); White Blood Cell 3.5 10^3/uL (4.4-10.8)
[2025-03-07 07:59] LABS: Hemoglobin 8.4 g/dL (12.2-16.2); Mean Corpuscular Hemoglobin 31.4 pg (28.0-32.0); Mean Corpuscular Hgb Conc. 35.9 g/dL (32.0-36.0); Mean Corpuscular Volume 87.4 fL (80.0-100.0); Red Cell Distribution Width 13.2 % (11.8-14.3)
[2025-03-07 08:04] LABS: Basophils % (manual) 0 (0.0-2.0); Blast Cells 0; Eosinophils % (manual) 0 (0-7); Metamyelocytes % 0; Myelocytes % 0; Promyelocytes % 0; Reactive Lymphocytes 0
[2025-03-07 08:23] LABS: Band Neutrophils % (manual) 1; Lymphocytes % (manual) 71 (10.0-50.0); Monocytes % (manual) 1 (0-12); Platelet Estimate Adequate
[2025-03-07 09:18] LABS: Alkaline Phosphatase 54 U/L (46-116); Anion Gap 10 (5-15); BUN/Creatinine Ratio 17.8 (10.0-20.0); Blood Urea Nitrogen 13 mg/dL (9-23); Calcium 9.8 mg/dL (8.7-10.4); Carbon Dioxide 23 mmol/L (20-31); Glucose 91 mg/dL (74-106); Potassium 3.7 mmol/L (3.5-5.1); Sodium 140 mmol/L (136-145); Total Protein 6.7 g/dL (5.7-8.2)
[2025-03-07 09:19] LABS: Albumin 3.9 g/dL (3.2-4.8); Cholesterol 135 mg/dL (< 200); LDL Cholesterol 79 mg/dL (< 100)
[2025-03-07 09:20] LABS: Bilirubin, Total 0.6 mg/dL (0.2-1.0)
[2025-03-07 09:21] LABS: Alanine Aminotransferase 132 U/L (7-40); Aspartate Aminotransferase 55 U/L (13-40); Chloride 107 mmol/L (98-107); HDL Cholesterol 23 mg/dL (40-59); Triglycerides 229 mg/dL (< 150)
[2025-03-07 10:10] LABS: Lipase 30 U/L (12-53)
[2025-03-07 11:42] LABS: Folate (Folic Acid) 12.98 ng/mL (>5.38)
[2025-03-07] MEDS ORDERED: MIDAZOLAM HCL 2MG/2ML 2ml VIAL (1mg/ml) IV ONE (13:45)
[2025-03-07] MEDS ORDERED: fentaNYL CITRATE 100 MCG/2 ML VL IV ONE (13:45)
[2025-03-07] MEDS ORDERED: LIDOCAINE 2%HCL (LOCAL ANESTH.) INJ 10ml MDV ONE (13:46)
[2025-03-07] MEDS ORDERED: MIDAZOLAM HCL 2MG/2ML 2ml VIAL (1mg/ml) ONE (13:51)
[2025-03-07] MEDS ORDERED: fentaNYL CITRATE 100 MCG/2 ML VL ONE (13:52)
--- NOTE | 2025-03-07 14:47 | DVHPN2 ---
Subjective No complaints White count is 3.5 with a mostly lymphocytes Hemoglobin 8.4 platelets are 164 The peripheral smear was nondiagnostic She has low reticulocyte count The pelvic ultrasound showed prominent over his Liver ultrasound showed cholelithiasis with sludge and hepatic steatosis or cirrhosis Changes from previous H/P or p: Changes Eyes: No Pain, No Vision change, No Conjunctivae inflammation, No Eyelid inflammation, No Other, No Redness ENT: No Ear pain, No Ear discharge, No Nose pain, No Nose discharge, No Nose congestion, No Mouth pain, No Mouth swelling, No Throat pain, No Throat swelling, No Other Cardiovascular: No Chest Pain, No Palpitations, No Orthopnea, No Paroxysmal Noc. Dyspnea, No Edema, No Lt Headedness; Other (Syncope) Respiratory: No Cough, No Dry, No Shortness of breath, No SOB with excertion, No Wheezing, No Hemoptysis, No Pleuritic Pain, No Sputum, No Other Gastrointestinal: No Nausea, No Vomiting, No Abdominal Pain, No Diarrhea, No Constipation, No Melena, No Hematochezia, No Other Genitourinary: No Dysuria, No Frequency, No Incontinence, No Hematuria, No Retention, No Other Musculoskeletal: No other, No neck pain, No shoulder pain, No arm pain, No back pain, No hand pain, No leg pain, No foot pain Skin: No Rash, No Lesions, No Jaundice, No Bruising, No Other Objective Vitals Vital Signs Date Time Temp Pulse Resp B/P (MAP) Pulse Ox O2 Delivery O2 Flow Rate FiO2 03/07/25 12:42 98.1 80 16 107/51 (69) 96 98.1 03/07/25 08:10 Room Air* 0 21 Intake/Output Intake and Output 03/07/25 07:00 Intake Total 1999.5 ml Output Total 1000 ml Balance 999.5 ml Intake Oral 1600 ml IV Total 99.5 ml Blood Product 300 ml Output Urine Total 1000 ml # Voids 3 # Bowel Movements 2 General Appearance: Alert, Oriented X3, Cooperative, No acute distress Lungs: Clear to auscultation, Normal air movement Cardiovascular: Regular rate, Normal S1, Normal S2 Abdomen: Normal bowel sounds, Soft, No tenderness Extremities: No edema Medications Current Medications Medications Dose Ordered Sig/Samuel Route Start Time Stop Time Status Last Admin Dose Admin Acetaminophen/ Hydrocodone Bitart 1 tab Q4HP PRN PO 03/05/25 21:15 Ondansetron HCl 4 mg Q4HP PRN IV 03/05/25 21:15 03/05/25 22:51 4 MG Docusate Sodium 100 mg BIDPRN PRN PO 03/05/25 21:15 Acetaminophen 650 mg Q6HP PRN PO 03/05/25 21:15 Ceftriaxone Sodium 50 ml @ 100 mls/hr DAILY@2100 IV 03/06/25 21:00 03/06/25 20:36 100 MLS/HR Nitroglycerin 0.4 mg Q5MINP PRN SL 03/05/25 21:45 Morphine Sulfate 2 mg Q30M PRN IV 03/05/25 21:45 03/05/25 22:50 2 MG Heparin Sodium/ Dextrose 250 ml @ 16.56 mls/ hr Q15H6M IV 03/05/25 23:00 UNV Pantoprazole Sodium 40 mg DAILY IV 03/06/25 10:00 03/07/25 09:23 40 MG Enoxaparin Sodium 90 mg Q12HR SC 03/06/25 22:00 03/07/25 09:24 90 MG Laboratory Results Laboratory Tests 03/07/25 06:26 Chemistry Test 03/07/25 06:26 Albumin 3.9 g/dL (3.2-4.8) Calcium Level 9.8 mg/dL (8.7-10.4) Magnesium Level 2.0 mg/dL (1.6-2.6) Total Protein 6.7 g/dL (5.7-8.2) Lipid panel Test 03/07/25 06:26 Cholesterol Level 135 mg/dL (< 200) HDL Cholesterol 23 mg/dL (40-59) L Lipase 30 U/L (12-53) Triglycerides Level 229 mg/dL (< 150) H LFT Test 03/07/25 06:26 Alanine Aminotransferase (ALT) 132 U/L (7-40) H Alkaline Phosphatase 54 U/L (46-116) Aspartate Amino Transferase (AST) 55 U/L (13-40) H Total Bilirubin 0.6 mg/dL (0.2-1.0) HgA1c, TSH Test 03/07/25 06:26 Thyroid Stimulating Hormone (TSH) 2.16 uIU/mL (0.55-4.78) Urinalysis Test 03/05/25 17:38 Urine Color Colorless (Yellow) Urine Clarity Clear (Clear) Urine pH 5.5 (5.0-9.0) Urine Specific [place] 1.010 (1.001-1.035) Urine Protein Negative (Negative) Urine Ketones 1+ (Negative) H Urine Blood Negative /uL (Negative) Urine Nitrite Negative (Negative) Urine Bilirubin Negative (Negative) Urine Urobilinogen Normal mg/dL (Negative) Urine Leukocyte Esterase 1+ /uL (Negative) Urine RBC 2 /hpf (0 - 4) Urine Microscopic WBC 3 /HPF (0-5) Urine Squamous Epithelial Cells Few /hpf (<5) Urine Bacteria Few /hpf (None Seen) H Urine Mucus Few (None Seen) Urine Glucose Normal mg/dL (Normal) Urine Test Negative (Negative) Microbiology Microbiology Date/Time Source Procedure Growth Status 03/05/25 17:38 Voided Urine Urine Culture - Preliminary Resulted Assessment/Plan Assessment/Plan Unexplained anemia Neutropenia with lymphocytosis Pulmonary embolism Obesity Amenorrhea UTI Plan She received 1 unit of packed RBCs this morning She was receiving IV heparin Switch to Lovenox Peripheral smear was done, pending The fact that she has neutropenia and lymphocytosis and anemia with low reticulocyte count raises the suspicion of low production such as leukemia or bone marrow failure The patient completely denies taking any oeho-eaf-vjkcuwi medication such as NSAIDs or any supplements or stimulants Check the folic acid and vitamin B12 Check the TSH Do a pelvic ultrasound Monitor closely Full code Discussed with the family at the bedside Advance directives discussed for 22 minutes 03/07/2025: Order CT scan of the abdomen and pelvis Order a bone marrow biopsy Her B12 and folic acid and TSH are all normal HCG is negative Plan discussed with: Patient My Orders Orders - SPENCER QUIROZ MD Procedure Category Date Status Time Enoxaparin Sodium PHA 03/06/25 In Process (Lovenox) 22:00 * Radiologist Consult CONS 03/07/25 Transmitted 13:[address] 03/07/25 Taken Needle Placeme 13:[address] 03/07/25 Taken 13:44 Ct Abd Pelvis W CT 03/08/25 Logged Con-Oral & Iv 07:00 Date of Service: March 07, 2025 Billing Provider: SPENCER QUIROZ MD Common Visit Codes: [id number] INP/OBS CARE(HIGH) SPENCER QUIROZ MD March 07, 2025 14:47
--- NOTE | 2025-03-07 15:04 | DVHINCON2 ---
Date of service: March 07, 2025 Referring Physician Dano Linn Reason for Consultation Elevated liver enzyme History of Present Illness The patient is a 29-year-old female with past medical history of syncope who presented to [facility] ED for evaluation of syncopal episode. Patient reports she feeling lightheaded after shower, then sat down on the bed trying to check her blood pressure when she had a syncopal episode. Unclear how long patient was unconscious, as she states no one witnessed the episode. Patient was seen and evaluated in the ED, laboratory data shows WBC 3.9, hemoglobin 7.7, hematocrit 21.4, platelets 209, sodium 142, potassium 3.8, BUN 18, creatinine 0.83, glucose 105, AST 62, ALT 158, BNP 3.04, D-dimer 1.08, troponin < 3, urinalysis positive for urinary tract infection, blood pressure 104/60, heart rate 82, temperature 98.0 F, O2 saturation 96% on room air. CT Angiography revealing positive pulmonary emboli in the 3rd and 4th order branches of the right lower lobe pulmonary artery. Patient was started on IV antibiotic regimen Rocephin, heparin drip, Patient was seen at bedside and she is currently resting comfortably. She denies any nausea vomiting no hematemesis no bright red blood per rectum or melena. She has no prior history of liver disease or alcohol use Past Medical History Past Medical History Syncope Ovarian cysts Past Surgical History Denies all surgeries Family History: Diabetes mellitus G8 FATHER Allergies: Coded Allergies: NO KNOWN ALLERGIES (Unverified , 09/30/14) Home Meds No Active Prescriptions or Reported Meds Current Medications Current Medications Medications (Trade) Dose Ordered Sig/Samuel Route PRN Reason Start Time Stop Time Status Last Admin Ceftriaxone Sodium 50 ml @ 100 mls/hr DAILY@2100 IV 03/06/25 21:00 03/06/25 20:36 Enoxaparin Sodium (Lovenox) 90 mg Q12HR SC 03/06/25 22:00 03/07/25 09:24 Vital Signs Vital Signs Date Time Temp Pulse Resp B/P (MAP) Pulse Ox O2 Delivery O2 Flow Rate FiO2 03/07/25 12:42 98.1 80 16 107/51 (69) 96 98.1 03/07/25 08:10 Room Air* 0 21 Physical Exam General Appearance: Alert, Oriented X3, Cooperative, No acute distress Lungs: Clear to auscultation, Normal air movement Cardiovascular: Regular rate, Normal S1, Normal S2 Abdomen: Normal bowel sounds, Soft, No tenderness Extremities: No edema Labs/Diagnostic Data Labs Test 03/07/25 06:26 03/06/25 09:00 03/06/25 05:35 03/05/25 18:43 Range/Units White Blood Count 3.5 L 4.4-10.8 10^3/uL Red Blood Count 2.68 L 4.0-5.20 10^6/uL Hemoglobin 8.4 L 12.2-16.2 g/dL Hematocrit 23.5 L 36.0-46.0 % Mean Corpuscular Volume 87.4 80.0-100.0 fL Mean Corpuscular Hemoglobin 31.4 28.0-32.0 pg Mean Corpuscular Hemoglobin Concent 35.9 32.0-36.0 g/dL Red Cell Distribution Width 13.2 11.8-14.3 % Platelet Count 164 140-450 10^3/uL Mean Platelet Volume 7.5 6.9-10.8 fL Neutrophils (%) (Auto) 37.0-80.0 % Lymphocytes (%) (Auto) 10.0-50.0 % Monocytes (%) (Auto) 0.0-12.0 % Basophils (%) (Auto) 0.0-2.0 % Neutrophils # (Auto) 1.6-8.6 10 ^3/uL Lymphocytes # (Auto) 0.4-5.4 10 ^3/uL Monocytes # (Auto) 0-1.3 10 ^3/uL Differential Total Cells Counted 100.0 100 Neutrophils % (Manual) 27 L 37.0-80.0 Band Neutrophils % (Manual) 1 Lymphocytes % (Manual) 71 H 10.0-50.0 Monocytes % (Manual) 1 0-12 Eosinophils % (Manual) 0 0-7 Basophils % (Manual) 0 0.0-2.0 Metamyelocytes % (manual) 0 Myelocytes % (Manual) 0 Promyelocytes % (Manual) 0 Blast Cells % (Manual) 0 Reactive Lymphocytes 0 Platelet Estimate Adequate Sodium Level 140 136-145 mmol/L Potassium Level 3.7 3.5-5.1 mmol/L Chloride Level 107 98-107 mmol/L Carbon Dioxide Level 23 20-31 mmol/L Anion Gap 10 5-15 Blood Urea Nitrogen 13 9-23 mg/dL Creatinine 0.73 0.550-1.02 mg/dL Glomerular Filtration Rate Calc 115 >90 mL/min BUN/Creatinine Ratio 17.8 10.0-20.0 Serum Glucose 91 74-106 mg/dL Calcium Level 9.8 8.7-10.4 mg/dL Magnesium Level 2.0 1.6-2.6 mg/dL Ferritin 1452.0 H 10-291 ng/mL Total Bilirubin 0.6 0.2-1.0 mg/dL Aspartate Amino Transferase (AST) 55 H 13-40 U/L Alanine Aminotransferase (ALT) 132 H 7-40 U/L Alkaline Phosphatase 54 46-116 U/L Total Protein 6.7 5.7-8.2 g/dL Albumin 3.9 3.2-4.8 g/dL Triglycerides Level 229 H < 150 mg/dL Cholesterol Level 135 < 200 mg/dL LDL Cholesterol 79 < 100 mg/dL HDL Cholesterol 23 L 40-59 mg/dL Lipase 30 12-53 U/L Vitamin B12 Level 620 211-911 pg/mL Folic Acid 12.98 >5.38 ng/mL Thyroid Stimulating Hormone (TSH) 2.16 0.55-4.78 uIU/mL Beta HCG, Quantitative 0.9 L 1.5-4.2 mIU/mL Reticulocyte Count (auto) 0.03 L 0.5-1.5 % Red Blood Cell Morphology Normal Prothrombin Time 11.4 9.3-11.8 sec Prothrombin Time INR 1.08 0.9-1.15 Activated Partial Thromboplast Time > 139.0 *H 24.5-34.5 SEC Iron Level 242 H 50-170 ug/dL Total Iron Binding Capacity 246 L 250-425 ug/dL Percent Iron Saturation 98.4 H 15-50 % Lactate Dehydrogenase 174 120-246 U/L Troponin I High Sensitivity < 3 L </=34 ng/L Test 03/05/25 17:49 03/05/25 17:38 03/05/25 17:31 Range/Units D-Dimer, Quantitative 1.08 H 0.0-0.49 mg/L FEU B-Type Natriuretic Peptide 3.04 0-100 pg/mL Urine Color Colorless Yellow Urine Clarity Clear Clear Urine pH 5.5 5.0-9.0 Urine Specific [place] 1.010 1.001-1.035 Urine Protein Negative Negative Urine Ketones 1+ H Negative Urine Blood Negative Negative /uL Urine Nitrite Negative Negative Urine Bilirubin Negative Negative Urine Urobilinogen Normal Negative mg/dL Urine Leukocyte Esterase 1+ Negative /uL Urine RBC 2 0 - 4 /hpf Urine Microscopic WBC 3 0-5 /HPF Urine Squamous Epithelial Cells Few <5 /hpf Urine Bacteria Few H None Seen /hpf Urine Mucus Few None Seen Urine Glucose Normal Normal mg/dL Urine Test Negative Negative POC Glucose 93 70-106 mg/dl Microbiology Date/Time Source Procedure Growth Status 03/05/25 17:38 Voided Urine Urine Culture - Preliminary Resulted LIVER USG Impression: 1. Cholelithiasis with sludge 2. Echogenic liver which can be seen with hepatic steatosis, cirrhosis. Problems(with codes): (1) Other pulmonary embolism without acute cor pulmonale (2) Pulmonary emboli (3) Syncope (4) Coagulopathy (5) Elevated liver enzymes (6) Decreased white blood cell count, unspecified (7) UTI (urinary tract infection) (8) Syncope and collapse (9) Anxiety reaction (10) Normocytic anemia Plan/Recommendation Assessment plan Patient denies any active GI bleeding We will check stool for occult blood Keep her on Protonix 40 mg IV daily Monitor serial H&H Patient has an appropriate rise of her hemoglobin to over eight after 1 unit PRBC Patient is undergoing a CT-guided bone marrow biopsy She might be a candidate for elective panendoscopy once medically stabilized and her pulmonary embolism as been treated I will follow up patient with you Plan discussed with: Patient MABEL ERWIN MD March 07, 2025 15:04
[2025-03-07 15:13] LABS: Hematocrit 23.6 % (36.0-46.0); Hemoglobin 8.4 g/dL (12.2-16.2)
--- NOTE | 2025-03-07 15:34 | DVH ---
CT CT GUIDANCE FOR NEEDLE PLACEME, HISTORY: BONE MARROW BX COMPARISON: None PROCEDURE: Informed consent and time-out was performed before the procedure. Conscious sedation was p erformed by the interventional radiology nurse. The pelvic bone was marked, sterilized, draped, and l ocally anesthetized using approximately 5 ml of 1% lidocaine. Axial CT images were used for localizat ion. A 11 gauge SPEEDELO Bone Biopsy kit was used to take 2 mL aspirate and 1 core. The biopsy needl e was then removed. No immediate complications noted. FINDINGS: Axial CT images demonstrates biopsy needle within the right posterior pelvic bone. IMPRESSION: CT-guided bone marrow aspiration and biopsy of the right posterior pelvic bone for bone marrow biopsy .
--- NOTE | 2025-03-07 15:34 | DVH ---
CT CT GUIDANCE FOR NEEDLE PLACEME, HISTORY: BONE MARROW BX COMPARISON: None PROCEDURE: Informed consent and time-out was performed before the procedure. Conscious sedation was p erformed by the interventional radiology nurse. The pelvic bone was marked, sterilized, draped, and l ocally anesthetized using approximately 5 ml of 1% lidocaine. Axial CT images were used for localizat ion. A 11 gauge Smart[employer] Jieyin Bone Biopsy kit was used to take 2 mL aspirate and 1 core. The biopsy needl e was then removed. No immediate complications noted. FINDINGS: Axial CT images demonstrates biopsy needle within the right posterior pelvic bone. IMPRESSION: CT-guided bone marrow aspiration and biopsy of the right posterior pelvic bone for bone marrow biopsy .
[2025-03-08] VITALS (9 sets, daily range): BP systolic 105–126; BP diastolic 63–72; PULSE 67–98; RESP 16–20; TEMP 97.5–98.8; O2SAT 93–98
[2025-03-08] MEDS ORDERED: OMNIPAQUE 12mg/ml 500ml ORAL SOLUTION PO ONE (08:10)
[2025-03-08] MEDS ORDERED: IOHEXOL 300 MG/ML 100ML BOTTLE IJ ONE (08:10)
--- NOTE | 2025-03-08 11:05 | DVH ---
Exam: CT CT ABD PELVIS W CON-ORAL IV History: amenorrhea COMPARISON: None Technique: Multidetector spiral CT of the abdomen and pelvis was performed from lung bases to pubic symphysis. Intravenous contrast was administered during this examination. Portal venous imaging was obtained. Axial, coronal and sagittal multiplanar reformats were performed by the technologist on a separate workstation. Radiation Dose : Abdomen/Pelvis: CTDIvol 13.47 mGy, DLP 832.54 mGy*cm. CONTRAST: Type of contrast: Omni 300 Contrast injected: 100 mL Findings: Lung Bases: Questionable filling defect in a right lower lobe segmental branch. Liver: Diffuse hepatic steatosis. Gallbladder and biliary Tree: Unremarkable Spleen: Unremarkable Pancreas: The pancreas is normal in appearance without focal lesions or abnormal enhancement. Adrenal Glands: Unremarkable Kidneys: No hydronephrosis. Bladder: Unremarkable Bowel: The stomach is grossly normal in appearance. Small bowel and colon are normal in caliber and d istribution. Normal appendix is visualized in the right lower quadrant without findings of appendicit is. Ascites: Absent Lymphadenopathy: No mesenteric, retroperitoneal or periportal lymphadenopathy. Abdominal wall and Mesentery: Unremarkable. Vasculature: The visualized abdominal aorta is normal in size and caliber. Abdominal and pelvic vess els demonstrate normal enhancement. Pelvic Organs: Unremarkable Musculoskeletal: No aggressive focal bony lesions, acute fractures or dislocation. IMPRESSION: 1. Questionable filling defect in a right lower lobe segmental branch only seen on 1st slice, raises concern for pulmonary embolus. Could be volume averaging. Recommend clinical correlation. If there is concern for pulmonary embolus recommend CTA of the chest with pulmonary embolus protocol. 2. Diffuse hepatic steatosis. No acute intra-abdominal process. Radiation optimization: All CT scans at this facility use at least one of these dose optimization maría hniques: Automated exposure control mA and/or kV adjustment per patient size (includes targeted exams where dose is matched to clinical indication) or iterative reconstruction. HS:Y
--- NOTE | 2025-03-08 12:40 | DVHPN2 ---
Subjective No new complaints CT scan of the abdomen and pelvis was done today shows no significant abnormality except for liver steatosis She had a bone marrow biopsy yesterday, the result is pending Changes from previous H/P or p: Changes Eyes: No Pain, No Vision change, No Conjunctivae inflammation, No Eyelid inflammation, No Other, No Redness ENT: No Ear pain, No Ear discharge, No Nose pain, No Nose discharge, No Nose congestion, No Mouth pain, No Mouth swelling, No Throat pain, No Throat swelling, No Other Cardiovascular: No Chest Pain, No Palpitations, No Orthopnea, No Paroxysmal Noc. Dyspnea, No Edema, No Lt Headedness; Other (Syncope) Respiratory: No Cough, No Dry, No Shortness of breath, No SOB with excertion, No Wheezing, No Hemoptysis, No Pleuritic Pain, No Sputum, No Other Gastrointestinal: No Nausea, No Vomiting, No Abdominal Pain, No Diarrhea, No Constipation, No Melena, No Hematochezia, No Other Genitourinary: No Dysuria, No Frequency, No Incontinence, No Hematuria, No Retention, No Other Musculoskeletal: No other, No neck pain, No shoulder pain, No arm pain, No back pain, No hand pain, No leg pain, No foot pain Skin: No Rash, No Lesions, No Jaundice, No Bruising, No Other Objective Vitals Vital Signs Date Time Temp Pulse Resp B/P (MAP) Pulse Ox O2 Delivery O2 Flow Rate FiO2 03/08/25 08:55 98.1 76 20 114/72 (86) 95 98.1 03/07/25 20:00 Room Air* 0 21 Intake/Output Intake and Output 03/08/25 07:00 Intake Total 995 ml Output Total 500 ml Balance 495 ml Intake Oral 945 ml IV Total 50 ml Output Urine Total 500 ml # Voids 2 # Bowel Movements 2 General Appearance: Alert, Oriented X3, Cooperative, No acute distress Lungs: Clear to auscultation, Normal air movement Cardiovascular: Regular rate, Normal S1, Normal S2 Abdomen: Normal bowel sounds, Soft, No tenderness Extremities: No edema Medications Current Medications Medications Dose Ordered Sig/Samuel Route Start Time Stop Time Status Last Admin Dose Admin Acetaminophen/ Hydrocodone Bitart 1 tab Q4HP PRN PO 03/05/25 21:15 Ondansetron HCl 4 mg Q4HP PRN IV 03/05/25 21:15 03/05/25 22:51 4 MG Docusate Sodium 100 mg BIDPRN PRN PO 03/05/25 21:15 Acetaminophen 650 mg Q6HP PRN PO 03/05/25 21:15 Ceftriaxone Sodium 50 ml @ 100 mls/hr DAILY@2100 IV 03/06/25 21:00 03/07/25 20:29 100 MLS/HR Nitroglycerin 0.4 mg Q5MINP PRN SL 03/05/25 21:45 Morphine Sulfate 2 mg Q30M PRN IV 03/05/25 21:45 03/05/25 22:50 2 MG Heparin Sodium/ Dextrose 250 ml @ 16.56 mls/ hr Q15H6M IV 03/05/25 23:00 UNV Pantoprazole Sodium 40 mg DAILY IV 03/06/25 10:00 03/08/25 09:00 40 MG Enoxaparin Sodium 90 mg Q12HR SC 03/06/25 22:00 03/08/25 09:00 90 MG Laboratory Results Laboratory Tests 03/07/25 06:26 03/07/25 15:00 Urinalysis Test 03/05/25 17:38 Urine Color Colorless (Yellow) Urine Clarity Clear (Clear) Urine pH 5.5 (5.0-9.0) Urine Specific [place] 1.010 (1.001-1.035) Urine Protein Negative (Negative) Urine Ketones 1+ (Negative) H Urine Blood Negative /uL (Negative) Urine Nitrite Negative (Negative) Urine Bilirubin Negative (Negative) Urine Urobilinogen Normal mg/dL (Negative) Urine Leukocyte Esterase 1+ /uL (Negative) Urine RBC 2 /hpf (0 - 4) Urine Microscopic WBC 3 /HPF (0-5) Urine Squamous Epithelial Cells Few /hpf (<5) Urine Bacteria Few /hpf (None Seen) H Urine Mucus Few (None Seen) Urine Glucose Normal mg/dL (Normal) Urine Test Negative (Negative) Microbiology Microbiology Date/Time Source Procedure Growth Status 03/05/25 17:38 Voided Urine Urine Culture - Final Complete Assessment/Plan Assessment/Plan Unexplained anemia Neutropenia with lymphocytosis Pulmonary embolism Obesity Amenorrhea UTI Plan She received 1 unit of packed RBCs this morning She was receiving IV heparin Switch to Lovenox Peripheral smear was done, pending The fact that she has neutropenia and lymphocytosis and anemia with low reticulocyte count raises the suspicion of low production such as leukemia or bone marrow failure The patient completely denies taking any oqgg-dme-ecbdqon medication such as NSAIDs or any supplements or stimulants Check the folic acid and vitamin B12 Check the TSH Do a pelvic ultrasound Monitor closely Full code Discussed with the family at the bedside Advance directives discussed for 22 minutes 03/07/2025: Order CT scan of the abdomen and pelvis Order a bone marrow biopsy Her B12 and folic acid and TSH are all normal HCG is negative 03/08/2025: Rocephin for UTI Continue to observe the patient closely Bone marrow biopsy is pending The rest of the management will depend on the hospital course Plan discussed with: Patient My Orders Orders - SPENCER QUIROZ MD Procedure Category Date Status Time * Radiologist Consult CONS 03/07/25 Transmitted 13:[address] 03/07/25 Resulted Needle Placeme 13:[address] 03/07/25 Resulted 13:[address] Abd Pelvis W CT 03/08/25 Resulted Con-Oral & Iv 07:00 Date of Service: March 08, 2025 Billing Provider: SPENCER QUIROZ MD Common Visit Codes: [id number] INP/OBS CARE(HIGH) SPENCER QUIROZ MD March 08, 2025 12:40
--- NOTE | 2025-03-08 16:43 | DVHPN2 ---
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 vital signs Vital Sign Date Time Temp Pulse Resp B/P (MAP) Pulse Ox O2 Delivery O2 Flow Rate FiO2 03/08/25 12:49 98.2 74 20 105/63 (77) 96 98.2 03/08/25 08:00 Room Air* 0 21 Total Intake and Output 03/07/25 03/07/25 03/08/25 15:00 23:00 07:00 Intake Total 995 ml 0 ml Output Total 500 ml Balance 995 ml -500 ml medications Current Medications Medications Dose Ordered Sig/Samuel Route Start Time Stop Time Status Last Admin Dose Admin Acetaminophen/ Hydrocodone Bitart 1 tab Q4HP PRN PO 03/05/25 21:15 Ondansetron HCl 4 mg Q4HP PRN IV 03/05/25 21:15 03/05/25 22:51 4 MG Docusate Sodium 100 mg BIDPRN PRN PO 03/05/25 21:15 Acetaminophen 650 mg Q6HP PRN PO 03/05/25 21:15 Ceftriaxone Sodium 50 ml @ 100 mls/hr DAILY@2100 IV 03/06/25 21:00 03/07/25 20:29 100 MLS/HR Nitroglycerin 0.4 mg Q5MINP PRN SL 03/05/25 21:45 Morphine Sulfate 2 mg Q30M PRN IV 03/05/25 21:45 03/05/25 22:50 2 MG Heparin Sodium/ Dextrose 250 ml @ 16.56 mls/ hr Q15H6M IV 03/05/25 23:00 UNV Pantoprazole Sodium 40 mg DAILY IV 03/06/25 10:00 03/08/25 09:00 40 MG Enoxaparin Sodium 90 mg Q12HR SC 03/06/25 22:00 03/08/25 09:00 90 MG objective General Appearance: Alert, Oriented X3, Cooperative, No acute distress Lungs: Clear to auscultation, Normal air movement Cardiovascular: Regular rate, Normal S1, Normal S2 Abdomen: Normal bowel sounds, Soft, No tenderness Extremities: No edema laboratory and microbiology Laboratory Tests 03/07/25 15:00 03/07/25 06:26 Test 03/07/25 06:26 Range/Units Serum Glucose 91 74-106 mg/dL Problems(with codes): (1) Normocytic anemia (2) Pulmonary emboli (3) Elevated liver enzymes Prognosis Assessment plan Patient is being awaited possible referral to higher level of care to [place] or [facility] for management of her acute leukemia Her iron profile was consistent with possible hemochromatosis or hemosiderosis but this could be secondary to her bone marrow problem We will defer to a community development worker and oncologist for ongoing further workup and management including checking a hemochromatosis phenotype Patient was advised to follow up in my office as an outpatient and my contact information was given Plan discussed with: Patient MABEL ERWIN MD March 08, 2025 16:43
[2025-03-09] VITALS (8 sets, daily range): BP systolic 99–119; BP diastolic 59–72; PULSE 70–95; RESP 17–20; TEMP 97.8–98.3; O2SAT 92–100
[2025-03-09 07:21] LABS: Albumin 4.3 g/dL (3.2-4.8); Alkaline Phosphatase 61 U/L (46-116); Anion Gap 10 (5-15); BUN/Creatinine Ratio 17.7 (10.0-20.0); Bilirubin, Total 0.6 mg/dL (0.2-1.0); Blood Urea Nitrogen 14 mg/dL (9-23); Calcium 9.5 mg/dL (8.7-10.4); Carbon Dioxide 27 mmol/L (20-31); Chloride 104 mmol/L (98-107); Glucose 100 mg/dL (74-106); Magnesium 2.2 mg/dL (1.6-2.6); Potassium 3.9 mmol/L (3.5-5.1); Sodium 141 mmol/L (136-145); Total Protein 7.5 g/dL (5.7-8.2)
[2025-03-09 07:25] LABS: Alanine Aminotransferase 184 U/L (7-40); Aspartate Aminotransferase 111 U/L (13-40)
[2025-03-09 07:39] LABS: Hematocrit 25.7 % (36.0-46.0); Hemoglobin 9.1 g/dL (12.2-16.2); Mean Corpuscular Hemoglobin 30.9 pg (28.0-32.0); Mean Corpuscular Hgb Conc. 35.5 g/dL (32.0-36.0); Platelet Count (auto) 179 10^3/uL (140-450); Red Blood Cells 2.95 10^6/uL (4.0-5.20); Red Cell Distribution Width 12.9 % (11.8-14.3); White Blood Cell 2.7 10^3/uL (4.4-10.8)
[2025-03-09 07:42] LABS: Band Neutrophils % (manual) 0; Basophils % (manual) 0 (0.0-2.0); Blast Cells 0; Eosinophils % (manual) 0 (0-7); Metamyelocytes % 0; Myelocytes % 0; Promyelocytes % 0; Reactive Lymphocytes 0
[2025-03-09 08:01] LABS: Lymphocytes % (manual) 74 (10.0-50.0); Monocytes % (manual) 2 (0-12); Platelet Estimate Adequate
--- NOTE | 2025-03-09 21:43 | DVHPN2 ---
Progress Note - Dictate Date Seen: March 09, 2025 Medical Necessity Reason Pt with a Central, PICC or Fol: No Subjective Patient is resting comfortably;Mild weakness Her abnormal profile iron profile pattern and ferritin were suggestive likely of hemochromatosis However I was notified by the patient that her primary results on her bone marrow biopsies consistent with the acute lymphocytic leukemia vital signs Vital Sign Date Time Temp Pulse Resp B/P (MAP) Pulse Ox O2 Delivery O2 Flow Rate FiO2 03/09/25 21:00 98.3 92 20 92 03/09/25 21:00 119/72 (88) 03/09/25 08:00 Room Air* 0 21 Total Intake and Output 03/08/25 03/08/25 03/09/25 15:00 23:00 07:00 Intake Total 555 ml 250 ml Output Total 300 ml Balance 555 ml -50 ml medications Current Medications Medications Dose Ordered Sig/Samuel Route Start Time Stop Time Status Last Admin Dose Admin Acetaminophen/ Hydrocodone Bitart 1 tab Q4HP PRN PO 03/05/25 21:15 Ondansetron HCl 4 mg Q4HP PRN IV 03/05/25 21:15 03/05/25 22:51 4 MG Docusate Sodium 100 mg BIDPRN PRN PO 03/05/25 21:15 Acetaminophen 650 mg Q6HP PRN PO 03/05/25 21:15 Ceftriaxone Sodium 50 ml @ 100 mls/hr DAILY@2100 IV 03/06/25 21:00 03/08/25 21:49 100 MLS/HR Nitroglycerin 0.4 mg Q5MINP PRN SL 03/05/25 21:45 Morphine Sulfate 2 mg Q30M PRN IV 03/05/25 21:45 03/05/25 22:50 2 MG Heparin Sodium/ Dextrose 250 ml @ 16.56 mls/ hr Q15H6M IV 03/05/25 23:00 UNV Pantoprazole Sodium 40 mg DAILY IV 03/06/25 10:00 03/09/25 09:43 40 MG Enoxaparin Sodium 90 mg Q12HR SC 03/06/25 22:00 03/09/25 09:43 90 MG objective General Appearance: Alert, Oriented X3, Cooperative, No acute distress Lungs: Clear to auscultation, Normal air movement Cardiovascular: Regular rate, Normal S1, Normal S2 Abdomen: Normal bowel sounds, Soft, No tenderness Extremities: No edema laboratory and microbiology Laboratory Tests 03/09/25 06:00 Test 03/09/25 06:00 Range/Units Serum Glucose 100 74-106 mg/dL Problems(with codes): (1) Normocytic anemia (2) Anxiety reaction (3) Pulmonary emboli (4) Leukopenia (5) Coagulopathy (6) Elevated liver enzymes (7) Elevated d-dimer (8) Abnormal bone marrow examination Prognosis Plan Advance diet as tolerated Patient has been accepted at [facility] and is awaiting transfer Outpatient follow up with me in 4-6 weeks or whenever possible to continue to monitor her liver Plan discussed with: Patient, Other (NurseAllergy welcome him) MABEL ERWIN MD March 09, 2025 21:43
--- NOTE | 2025-03-09 21:56 | DVHDS2 ---
Discharge Summary Date of Admission March 05, 2025 at 21:41 Date of Discharge: March 09, 2025 Labs/Diagnostic Data: Laboratory Results Test 03/09/25 06:00 03/07/25 06:26 03/06/25 09:00 03/06/25 05:35 White Blood Count 2.7 10^3/uL (4.4-10.8) Red Blood Count 2.95 10^6/uL (4.0-5.20) Hemoglobin 9.1 g/dL (12.2-16.2) Hematocrit 25.7 % (36.0-46.0) Mean Corpuscular Volume 87.0 fL (80.0-100.0) Mean Corpuscular Hemoglobin 30.9 pg (28.0-32.0) Mean Corpuscular Hemoglobin Concent 35.5 g/dL (32.0-36.0) Red Cell Distribution Width 12.9 % (11.8-14.3) Platelet Count 179 10^3/uL (140-450) Mean Platelet Volume 7.4 fL (6.9-10.8) Neutrophils (%) (Auto) % (37.0-80.0) Lymphocytes (%) (Auto) % (10.0-50.0) Monocytes (%) (Auto) % (0.0-12.0) Basophils (%) (Auto) % (0.0-2.0) Neutrophils # (Auto) 10 ^3/uL (1.6-8.6) Lymphocytes # (Auto) 10 ^3/uL (0.4-5.4) Monocytes # (Auto) 10 ^3/uL (0-1.3) Differential Total Cells Counted 100.0 (100) Neutrophils % (Manual) 24 (37.0-80.0) Band Neutrophils % (Manual) 0 Lymphocytes % (Manual) 74 (10.0-50.0) Monocytes % (Manual) 2 (0-12) Eosinophils % (Manual) 0 (0-7) Basophils % (Manual) 0 (0.0-2.0) Metamyelocytes % (manual) 0 Myelocytes % (Manual) 0 Promyelocytes % (Manual) 0 Blast Cells % (Manual) 0 Reactive Lymphocytes 0 Platelet Estimate Adequate Sodium Level 141 mmol/L (136-145) Potassium Level 3.9 mmol/L (3.5-5.1) Chloride Level 104 mmol/L (98-107) Carbon Dioxide Level 27 mmol/L (20-31) Anion Gap 10 (5-15) Blood Urea Nitrogen 14 mg/dL (9-23) Creatinine 0.79 mg/dL (0.550-1.02) Glomerular Filtration Rate Calc 104 mL/min (>90) BUN/Creatinine Ratio 17.7 (10.0-20.0) Serum Glucose 100 mg/dL (74-106) Calcium Level 9.5 mg/dL (8.7-10.4) Magnesium Level 2.2 mg/dL (1.6-2.6) Total Bilirubin 0.6 mg/dL (0.2-1.0) Aspartate Amino Transferase (AST) 111 U/L (13-40) Alanine Aminotransferase (ALT) 184 U/L (7-40) Alkaline Phosphatase 61 U/L (46-116) Total Protein 7.5 g/dL (5.7-8.2) Albumin 4.3 g/dL (3.2-4.8) Ferritin 1452.0 ng/mL (10-291) Triglycerides Level 229 mg/dL (< 150) Cholesterol Level 135 mg/dL (< 200) LDL Cholesterol 79 mg/dL (< 100) HDL Cholesterol 23 mg/dL (40-59) Lipase 30 U/L (12-53) Vitamin B12 Level 620 pg/mL (211-911) Folic Acid 12.98 ng/mL (>5.38) Thyroid Stimulating Hormone (TSH) 2.16 uIU/mL (0.55-4.78) Beta HCG, Quantitative 0.9 mIU/mL (1.5-4.2) Reticulocyte Count (auto) 0.03 % (0.5-1.5) Haptoglobin 163 mg/dL (33-278) Red Blood Cell Morphology Normal Prothrombin Time 11.4 sec (9.3-11.8) Prothrombin Time INR 1.08 (0.9-1.15) Activated Partial Thromboplast Time > 139.0 SEC (24.5-34.5) Iron Level 242 ug/dL (50-170) Total Iron Binding Capacity 246 ug/dL (250-425) Percent Iron Saturation 98.4 % (15-50) Lactate Dehydrogenase 174 U/L (120-246) Test 03/05/25 18:43 03/05/25 17:49 03/05/25 17:38 03/05/25 17:31 Troponin I High Sensitivity < 3 ng/L (</=34) D-Dimer, Quantitative 1.08 mg/L FEU (0.0-0.49) B-Type Natriuretic Peptide 3.04 pg/mL (0-100) Urine Color Colorless (Yellow) Urine Clarity Clear (Clear) Urine pH 5.5 (5.0-9.0) Urine Specific [place] 1.010 (1.001-1.035) Urine Protein Negative (Negative) Urine Ketones 1+ (Negative) Urine Blood Negative /uL (Negative) Urine Nitrite Negative (Negative) Urine Bilirubin Negative (Negative) Urine Urobilinogen Normal mg/dL (Negative) Urine Leukocyte Esterase 1+ /uL (Negative) Urine RBC 2 /hpf (0 - 4) Urine Microscopic WBC 3 /HPF (0-5) Urine Squamous Epithelial Cells Few /hpf (<5) Urine Bacteria Few /hpf (None Seen) Urine Mucus Few (None Seen) Urine Glucose Normal mg/dL (Normal) Urine Test Negative (Negative) POC Glucose 93 mg/dl (70-106) Other Laboratory Tests 03/09/25 06:00 Brief Hx & Hospital Course: 29-year-old female with no past medical history to the hospital with syncope and was found to be anemic. 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 She will recommended to be transferred to higher level of care due to the fact that we not have hematology oncology here Patient was accepted at the [facility] today and she is going to be transferred there The patient is stable for transfer Hemoglobin today is 9.1 Vital signs are stable : Acute lymphocytic leukemia Anemia due to the above Neutropenia Amenorrhea Elevated liver function tests Condition at Discharge: Stable Final Diagnosis/Problems List ALL Anemia Pulmonary embolism Discharge Disposition: Acute Care Facility SNF Discharge Will this Physician continue t: No Discharge Instruct/Medications Diet: Regular Activity: No Restrictions, As Tolerated Follow Up/Referral: Accepting MD Medications: See Med Rec Discharge Statement: "Patient was advised to return to the ER or call 911 if any headaches, dizziness, shortness of breath, chest pain, abdominal pain, bleeding, fevers, or worsening of medical condition. Patient was counseled about treatment plan, medications, possible side effects, patientverbalized understanding. All questions were answered to the best of my ability. This discharge took greater then 30 minutes in planning, reviewing documentation, counseling the patient, and discussing with other team members." ASSESSMENT ASSESSMENT Assessment ALL Anemia Pulmonary embolism Date of Service: March 09, 2025 Billing Provider: SPENCER QUIROZ MD Common Visit Codes: [id number] DISCH DAY >30min SPENCER QUIROZ MD March 09, 2025 21:56
--- NOTE | 2025-03-10 14:42 | ECG ---
[facility] Test Date: 2025-03-05 Test Time: 23:01:52 Pat Name: LATASHA TODD Department: ED Room: 0289T A Gender: F Code Inspector: CARLOS : [id number] Requested By: MAXIMO MADERA Order Number: [id number] Reading MD: Jose M Beltrán Measurements Intervals [place] Rate: 114 P: 27 [place]: 127 QRS: 32 QRSD: 80 T: 14 QT: 364 QTc: 502 Interpretive Statements Sinus tachycardia Low voltage, precordial leads Borderline T abnormalities, anterior leads Prolonged QT interval Electronically Signed On 03-14-2025 10:50:40 PDT by Jose M Beltrán Please click the below link to view image of tracing.
== END 2025-03-10 00:37 | disposition short-term general hospital (02) | DRG 690 ==
LOC: ER 17:25 → OVERFLOW 21:41 → TELE-WESTW 03-06 01:59
PROVIDERS: ADMIT Internal Medicine Geriatric Medicine; ATTEND Internal Medicine Geriatric Medicine
PROC: 30233N1 Transfusion of Nonautologous Red Blood Cells into Peripheral Vein, Percutaneous Approach (ICD-10-PCS; principal; 2025-03-06)
PROC: 079T3ZX Drainage of Bone Marrow, Percutaneous Approach, Diagnostic (ICD-10-PCS; 2025-03-07)
PROC: 07DR3ZX Extraction of Iliac Bone Marrow, Percutaneous Approach, Diagnostic (ICD-10-PCS; 2025-03-07)
DX: C91.00 Acute lymphoblastic leukemia not having achieved remission (principal); I26.99 Other pulmonary embolism without acute cor pulmonale; D70.9 Neutropenia, unspecified; N91.2 Amenorrhea, unspecified; E66.9 Obesity, unspecified; Z68.34 Body mass index [BMI] 34.0-34.9, adult; Z83.3 Family history of diabetes mellitus; D63.0 Anemia in neoplastic disease; N30.00 Acute cystitis without hematuria
CPT/HCPCS: 10005; 36415; 71275; 72192; 74177; 76705; 76856; 77012; 80053; 80061; 81001; 81025; 82607; 82728; 82746; 82962; 83010; 83540; 83550; 83615; 83690; 83735; 83880; 84443; 84484; 84702; 85007; 85014; 85018; 85027; 85045; 85379; 85610; 85730; 86850; 86900; 86901; 86920; 87086; 93005; 93970; 96361; 96365; 96375; 99291; G0378; J2003; J2250; J2405; J2470